=== PATIENT | male | born 1970 | race Caucasian/White ===

== ENCOUNTER 2016-11-22 07:44 | Emergency (ER) ==
[2016-11-22 07:44] VITALS: BMI 22.0
[2016-11-22 08:00] VITALS: BP 148/91; TEMP 96.6
[2016-11-22] MEDS ORDERED: TORADOL IM STA (08:04)
[2016-11-22] MEDS ORDERED: ZOFRAN 4 MG/2 ML IM STA (08:04)
[2016-11-22] MEDS ORDERED: MORPHINE 4 MG/ML SYRINGE IM STA (08:04)
[2016-11-22] MEDS ORDERED: VALIUM SYRINGE IM STA (08:04)
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
== END 2016-11-22 10:09 | disposition home or self-care (01) ==
LOC: ED 07:44
DX: M54.5 Low back pain (principal); M54.2 Cervicalgia; V59.9XXA Occupant (driver) (passenger) of pick-up truck or van injured in unspecified traffic accident, initial encounter; F17.210 Nicotine dependence, cigarettes, uncomplicated
CPT/HCPCS: 96372; 99283

== ENCOUNTER 2016-11-30 09:45 | Outpatient (CLI) ==
--- NOTE | 2016-11-30 14:53 | MRI ---
EXAM: Lumbar spine MRI without contrast. HISTORY: Low back pain. COMPARISON: Lumbar spine CT scan 11/22/2016 and lumbar spine MRI 04/13/2016. TECHNIQUE: Multiplanar, multisequence MR images were acquired of the lumbar spine without contrast. FINDINGS: Small ribs are present bilaterally at T12. There are five lumbar-type vertebra. The lum bar vertebra are normal in height and alignment. Intrinsic bone marrow signal is mildly heterogeneo us. There is minor lumbar ventral spondylosis. At L4-5, there is osteophytosis with disc space erin rowing, disc desiccation and vacuum phenomenon. The intervertebral disc at L5-S1 is developmentally small. Conus medullaris ends at L1 and has normal signal intensity. The visualized liver, gallbladder, spleen and kidneys are unremarkable. There is a normal variant r etroaortic left renal vein. There are no paravertebral masses. T12-L1: The intervertebral disc is normal. L1-2: The intervertebral disc is normal. There is no central canal stenosis or foraminal stenosis. L2-3: There is a minimal disc bulge that may be physiologic with small right far lateral endplate o steophytes. There is no central canal stenosis or foraminal stenosis. L3-4: There is a minimal disc bulge that is considered physiologic and minor bilateral facet arthro roselyn and mild ligamentum flavum hypertrophy. There is minor bilateral foraminal stenosis. L4-5: There is a mild disc bulge with a stable moderate central and left paracentral disc protrusio n that effaces the ventral thecal sac and encroaches on the left L5 nerve roots. Mild bilateral face t arthropathy and ligamentum flavum hypertrophy is present. There is mild to moderate bilateral for aminal stenosis. L5, S1: There is a minor posterior disc bulge and minor bilateral facet arthropathy. There is no c entral canal stenosis or foraminal stenosis. IMPRESSION: 1. No change moderate central/left paracentral disc protrusion L4-5. 2. Mild to moderate bilateral foraminal stenosis L4-5.
== END 2016-11-30 09:46 | disposition home or self-care (01) ==
LOC: RAD 09:45
PROVIDERS: ATTEND Family Medicine
DX: M54.5 Low back pain (principal)

== ENCOUNTER 2016-12-01 11:23 | Outpatient (CLI) ==
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
== END 2016-12-01 11:24 | disposition home or self-care (01) ==
LOC: RAD 11:23
PROVIDERS: ATTEND Family Medicine
DX: M54.2 Cervicalgia (principal)

== ENCOUNTER 2017-04-28 08:38 | Emergency (ER) ==
[2017-04-28 08:44] VITALS: BP 151/97; TEMP 98.3; BMI 22.6
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
[2017-04-28] MEDS ORDERED: NORFLEX IM STA (09:00)
[2017-04-28] MEDS ORDERED: TORADOL IM STA (09:00)
== END 2017-04-28 10:05 | disposition home or self-care (01) ==
LOC: ED 08:38
DX: M54.5 Low back pain (principal); F17.210 Nicotine dependence, cigarettes, uncomplicated
CPT/HCPCS: 96372; 99282

== ENCOUNTER 2017-10-19 08:37 | Emergency (ER) ==
[2017-10-19 08:44] VITALS: BP 120/90; TEMP 96.9; BMI 22.0
[2017-10-19] MEDS ORDERED: SODIUM CHLORIDE 1,000 ML IV STA (10:31)
--- NOTE | 2017-10-19 10:40 | ED.PDOC ---
General ED Provider: Dr. TOMASZ ZARAGOZA Chief Complaint: Abdominal Pain Stated Complaint: Severe pain in Rt upper and lower abdomen. Onset 4 days ago. + Diarrhea but Denies Nausea or vomiting. Persistent pain moving from Rt UQ/ Flank into RLQ. No previous GI or illness Time Seen by Physician: 10:20 Mode of Arrival: Walk-In Information Source: Patient Exam Limitations: No limitations Primary Care Provider: TOMASZ TRACEY Referred to ED by: Other Nursing and Triage Documentation Reviewed and Agree: Yes Reviewed sepsis parameters & appropriate labs ordered?: Yes System Inflammatory Response Syndrome: Not Applicable Sepsis Protocol: For patient's 13 years and over: Temp is 96.8 and below OR 101 and greater Pulse >90 BPM Resp >20/minute Acutely Altered Mental Status Are patient's symptoms suggestive of a new infection, such as: -Pneumonia -Skin, Soft Tissue -Endocarditis -UTI -Bone, Joint Infection -Implantable Device -Acute Abdominal Infection -Wound Infection -Meningitis -Blood Stream Catheter Infection -Unknown GI Complaint Exam - Abdominal Pain Complaint/Exam Symptoms Are: Still present Timing: Constant Initial Severity: Severe Current Severity: Severe Location of Pain: RUQ, RLQ Radiates To: Reports: Flank Character: Reports: Sharp, Cramping, Colicky Aggravating: Reports: Deep breaths, Position Alleviating: Reports: Rest Associated Signs and Symptoms: Reports: Back pain, Diarrhea. Denies: Diaphoresis, Fever, Cough, Chest pain, Dizziness, Constipation, Blood in stool, Dysuria, Urinary frequency, Decreased urine output, Decreased appetite, Discharge, Nausea, Vomiting, Decreased activity Related History: Denies: Similar episode Review of Systems - Review Of Systems Constitutional: Reports: No symptoms Eyes: Reports: No symptoms Ears, Nose, Mouth, Throat: Reports: No symptoms Respiratory: Reports: No symptoms Cardiac: Reports: No symptoms GI: Reports: Abdominal pain, Diarrhea, Other (Ate breakfast this morning without difficulty). Denies: Abdomen distended, Constipated, Difficulty swallowing, Nausea, Poor appetite : Reports: No symptoms Musculoskeletal: Reports: No symptoms Skin: Reports: No symptoms Neurological: Reports: No symptoms Endocrine: Reports: No symptoms Hematologic/Lymphatic: Reports: No symptoms All Other Systems: Reviewed and Negative Past Medical History - Past Medical History Previously Healthy: Yes Endocrine: Reports: None Cardiovascular: Reports: Hypertension Respiratory: Reports: None Hematological: Reports: None Gastrointestinal: Reports: None Genitourinary: Reports: None Neuro/Psych: Reports: None Musculoskeletal: Reports: Back Pain, Joint Pain Cancer: Reports: None Other Pertinent Past Medical History: chronic back pain - Surgical History General Surgical History: Reports: Orthopedic (NECK SURGERY 2003, JAW SURGERY 1983), Hernia Repair, Unknown - Family History Family History: Reports: Unknown - Social History Smoking Status: Current some day smoker Hx Substance Use: No Alcohol Screening: Occasionally Physical Exam - Physical Exam Appearance: Ill-appearing Ill-appearing: Moderate Pain Distress: Severe Eyes: NATALEE, EOMI, Conjunctiva clear ENT: Ears normal Neck: Supple Respiratory: Airway patent, Breath sounds clear, Breath sounds equal Cardiovascular: RRR, Pulses normal, No rub, No murmur GI/: Soft, Tender, Bowel sounds hypoactive Musculoskeletal: Normal strength Skin: Warm, Normal color Neurological: Sensation intact Re-Evaluation - Re-Evaluation Time of Re-Evaluation: 14:30 Status: Worse Vital Signs Stable: Yes Lungs: Clear Skin: Warm and Dry Neuro: Alert and Oriented X3 CV: RRR Additional Comments: Abdominal pain persists in Rt Lower quadrant /rebound and guading Physician Notification - Case Discussed Physician Notified: Dr Tracey/agreed for transfer to [facility] FOR SURGICAL CONSULT & [place] Time of Notification: 15:00 Physician Notified: DR SKYLAR CALLEJAS AT [facility] CONSULTED/DISCUSSED/ AGREED TO ACCEPT Time of Notification: 15:20 Critical Care Note - Critical Care Note Total Time (mins): 0 Course - Course Hematology/Chemistry: 10/19/17 10:45 10/19/17 10:45 Orders, Labs, Meds: Lab Review 10/19/17 10/19/17 10/19/17 08:52 10:45 10:45 WBC 6.85 RBC 4.97 Hgb 15.9 Hct 45.9 MCV 92.4 MCH 32.0 H MCHC 34.6 RDW Coeff of Filiberto 12.4 Plt Count 266 Immature Gran % (Auto) 0.1 Neut % (Auto) 66.0 Lymph % (Auto) 24.1 [place] % (Auto) 6.9 Eos % (Auto) 2.2 Baso % (Auto) 0.7 Immature Gran # (Auto) 0.0 Neut # 4.5 Lymph # 1.7 [place] # 0.5 Eos # 0.2 Baso # 0.1 Sodium 140 Potassium 4.2 Chloride 106 Carbon Dioxide 27 Anion Gap 11.2 BUN 12 Creatinine 1.03 Estimated GFR (MDRD) 77.00 BUN/Creatinine Ratio 11.65 Glucose 93 Calcium 9.6 Total Bilirubin 0.5 AST 16 ALT 20 Alkaline Phosphatase 70 Total Protein 6.9 Albumin 3.9 Globulin 3.0 Albumin/Globulin Ratio 1.30 Lipase Urine Color Yellow Urine Clarity Clear Urine pH 5.5 Ur Specific [place] >=1.030 Urine Protein Negative Urine Glucose (UA) Negative Urine Ketones 1+ Urine Blood Negative Urine Nitrite Negative Urine Bilirubin 1+ Urine Urobilinogen 0.2 Ur Leukocyte Esterase Negative 10/19/17 10:45 WBC RBC Hgb Hct MCV MCH MCHC RDW Coeff of Filiberto Plt Count Immature Gran % (Auto) Neut % (Auto) Lymph % (Auto) [place] % (Auto) Eos % (Auto) Baso % (Auto) Immature Gran # (Auto) Neut # Lymph # [place] # Eos # Baso # Sodium Potassium Chloride Carbon Dioxide Anion Gap BUN Creatinine Estimated GFR (MDRD) BUN/Creatinine Ratio Glucose Calcium Total Bilirubin AST ALT Alkaline Phosphatase Total Protein Albumin Globulin Albumin/Globulin Ratio Lipase 46 Urine Color Urine Clarity Urine pH Ur Specific [place] Urine Protein Urine Glucose (UA) Urine Ketones Urine Blood Urine Nitrite Urine Bilirubin Urine Urobilinogen Ur Leukocyte Esterase Orders Category Date Time Status NPO REMINDER: IMAGING ONCE CARE 10/19/17 10:34 Completed CBC W/ AUTO DIFF Stat LAB 10/19/17 10:45 Completed CMP [COMPREHENSIVE METABOLIC PANEL] Stat LAB 10/19/17 10:45 Completed LIPASE Stat LAB 10/19/17 10:45 Completed UA [URINALYSIS C & S IF INDICATED] Stat LAB 10/19/17 08:52 Completed Hydromorphone HCl/Pf [Dilaudid 2 mg/ml Syringe] MEDS 10/19/17 12:24 Discontinued 2 mg IVP ONCE STA Ondansetron HCl/Pf [Zofran 4 mg/2 ml] MEDS 10/19/17 12:24 Discontinued 4 mg IVP ONCE STA Sodium Chloride 0.9% [Sodium Chloride] 1,000 ml MEDS 10/19/17 10:31 Active IV 125 mls/hr CT ABDOMEN/PELVIS W/WO CONTRAS Stat RADS 10/19/17 10:31 Completed Medications Generic Name Dose Route Start Last Admin Trade Name Freq PRN Reason Stop Dose Admin Sodium Chloride 1,000 mls @ 125 mls/hr 10/19/17 10:31 10/19/17 10:45 Sodium Chloride IV 10/19/17 18:30 125 mls/hr .Q8H STA Administration Discontinued Medications Generic Name Dose Route Start Last Admin Trade Name Zaid PRN Reason Stop Dose Admin Hydromorphone HCl 2 mg 10/19/17 12:24 10/19/17 12:37 Dilaudid 2 Mg/Ml Syringe IVP 10/19/17 12:25 2 mg ONCE STA Administration Ondansetron HCl 4 mg 10/19/17 12:24 10/19/17 12:36 Zofran 4 Mg/2 Ml IVP 10/19/17 12:25 4 mg ONCE STA Administration Vital Signs: Temp Pulse Resp BP Pulse Ox 10/19/17 08:40 96.9 F L 90 20 120/90 95 Departure - Departure Time of Disposition: 15:34 Disposition: TSF SHORT-TRM HOSP Discharge Problem: Acute colitis Condition: Stable Pt referred to PMD for follow-up: Yes (POST HOSPITALIZATION ) Allergies/Adverse Reactions: Allergies fexofenadine Adverse Reaction (Verified 10/19/17 08:44) Penicillins Adverse Reaction (Verified 10/19/17 08:44) venom-honey bee [bee venom (honey bee)] Adverse Reaction (Verified 10/19/17 08: 44) Home Medications: Ambulatory Orders Hydrocodone Bit/Acetaminophen [[place] 7.5-325] 1 each PO Q6HR 07/27/16
[2017-10-19] MEDS ORDERED: ZOFRAN 4 MG/2 ML IVP STA (12:24)
[2017-10-19] MEDS ORDERED: DILAUDID 2 MG/ML SYRINGE IVP STA (12:24)
--- NOTE | 2017-10-19 12:46 | CT ---
EXAM: CT abdomen pelvis with and without contrast HISTORY: Acute right upper quadrant, right lower quadrant flank pain COMPARISON: None TECHNIQUE: CT abdomen pelvis performed with and without intravenous contrast. Coronal and sagittal reformatted images obtained. FINDINGS: Lung bases clear. No free air. No acute abnormalities of the bones. Granulomatous calci fication right lung base. Heart normal in size. Liver appears normal. Sub centimeter hypodensity l eft liver, too small to characterize. Gallbladder unremarkable. Pancreas unremarkable. Spleen unre markable. Adrenals unremarkable. Kidneys unremarkable without hydronephrosis or nephrolithiasis. N o calculi visualized in the normal course of the ureters. Bladder unremarkable. Prostate normal in size. Small fat-containing right inguinal hernia. Aorta normal in caliber. Minimal atherosclerosis . Minimal fat-containing umbilical hernia. No lymphadenopathy or ascites. Postsurgical changes in the left groin and likely from prior hernia repair. Stomach appears normal. No dilated loops small bowel. Distal appendix difficult to trace. Questionable top normal diameter of the distal appendix up to 6 mm versus nonspecific perihepatic nodularity and/or trace fluid. No inflammatory changes are identified. There is increased submucosal fat deposition in portions of the colon. Wall thickening of the rectosigmoid region. IMPRESSION: 1. Distal appendix difficult to trace. Questionable top normal diameter of the distal appendix up t o 6 mm versus nonspecific perihepatic nodularity and/or trace fluid. No inflammatory changes identifi ed. A positive examination for appendicitis is not favored; however, clinical correlation is recommen ded. Consider a short-term follow-up CT if patient's symptoms continue. 2. Wall thickening rectosigmoid region suggesting colitis. 3. Increased submucosal fat deposition in portions of the colon, a finding be seen in sequela of rem ote infection or inflammation, such as inflammatory bowel disease. 4. Small fat-containing right inguinal hernia. 5. Postsurgical changes left pelvis likely from prior hernia repair.
== END 2017-10-19 16:16 | disposition short-term general hospital (02) ==
LOC: ED 08:37
DX: K52.9 Noninfective gastroenteritis and colitis, unspecified (principal); F17.210 Nicotine dependence, cigarettes, uncomplicated
CPT/HCPCS: 36415; 80053; 81001; 83690; 85025; 96361; 96374; 96375; 99285

== ENCOUNTER 2017-10-19 16:06 | Outpatient (CLI) ==
[2017-10-19 08:44] VITALS: BMI 22.0
== END 2017-10-19 16:07 | disposition short-term general hospital (02) ==
LOC: AMBL 16:06
PROVIDERS: ATTEND Emergency Medicine
DX: R10.9 Unspecified abdominal pain (principal)

== ENCOUNTER 2018-01-23 13:59 | Emergency (ER) ==
[2018-01-23 14:05] VITALS: BP 168/92; TEMP 98.5; BMI 22.8
[2018-01-23] MEDS ORDERED: ROCEPHIN 1 GM in SODIUM CHLORIDE 50 ML IV STA (14:29)
[2018-01-23] MEDS ORDERED: SOLU-MEDROL 125 MG IVP STA ×2 (14:30→14:32)
[2018-01-23] MEDS ORDERED: ASPIRIN CHEWABLE PO STA (14:30)
--- NOTE | 2018-01-23 15:47 | ED.PDOC ---
General ED Provider: Dr. RADHA MATHIAS Chief Complaint: Hypertension Stated Complaint: hypertension Time Seen by Physician: 14:00 Mode of Arrival: Walk-In Information Source: Patient Exam Limitations: No limitations Primary Care Provider: TOMASZ CURIEL Nursing and Triage Documentation Reviewed and Agree: Yes (chest pain palpitation onset 2 am today with chest pain) Reviewed sepsis parameters & appropriate labs ordered?: Yes System Inflammatory Response Syndrome: Not Applicable Sepsis Protocol: For patient's 13 years and over: Temp is 96.8 and below OR 101 and greater Pulse >90 BPM Resp >20/minute Acutely Altered Mental Status Are patient's symptoms suggestive of a new infection, such as: -Pneumonia -Skin, Soft Tissue -Endocarditis -UTI -Bone, Joint Infection -Implantable Device -Acute Abdominal Infection -Wound Infection -Meningitis -Blood Stream Catheter Infection -Unknown System Inflammatory Response Syndrome: Not Applicable Cardiovascular Complaint Exam - Chest Pain Complaint/Exam Onset: Gradual Duration: 12 hrs Symptoms Are: Resolved Timing: Intermittent Length of Chest Pain Episodes: 30 min Initial Severity: Moderate Current Severity: None Location: Reports: Midsternal Pain Radiates: Reports: Left shoulder, Left arm. Denies: Back, Right shoulder, Right arm, Jaw, Neck Character: Reports: Aching Aggravating: Reports: None Alleviating: Reports: None Associated Signs and Symptoms: Reports: Cough. Denies: Diaphoresis, Nausea, Vomiting, Fever, Palpitations, Hemoptysis, Back pain, Abdominal pain, Dizziness , Short of air, Calf pain, Calf swelling Related History: Reports: Similar episode Related Surgical History: Reports: None History of Healthcare-Acquired Pneumonia: Reports: No AMI/ACS Risk Factors: Reports: Obesity, Hypertension, Smoking TAD Risk Factors: Reports: Hypertension, Smoking Pulmonary Embolism Risk Factors: Reports: None Prior Care for this Complaint: No Recent Stress Test: No Recent Echo/LV Function: No JVD Present: No Subcutaneous Emphysema Present: No Diminshed Breath Sounds: No Reproducible Chest Wall Pain: No Bilateral Pulses Present: No Unequal Pulses Noted: No If Risk Factors for AMI/ACS Consider: EKG, Cardiac Enzymes Care and Dx Studies Discussed With: Family Differential Diagnoses: Acute SC, ACS, Unstable Angina, Lower Resp. Infection Quality Indicators For Acute SC or Cardiac Chest Pain: EKG in 10min. Quality Indicator For Non-Traumatic Chest Pain/Syncope: EKG Performed Patient Advised to Stop Smoking: Yes Review of Systems - Review Of Systems Constitutional: Reports: No symptoms Eyes: Reports: No symptoms Ears, Nose, Mouth, Throat: Reports: No symptoms Respiratory: Reports: No symptoms Cardiac: Reports: Chest pain GI: Reports: No symptoms : Reports: No symptoms Musculoskeletal: Reports: No symptoms Skin: Reports: No symptoms Neurological: Reports: No symptoms Endocrine: Reports: No symptoms Hematologic/Lymphatic: Reports: No symptoms All Other Systems: Reviewed and Negative Past Medical History - Past Medical History Previously Healthy: Yes Endocrine: Reports: None Cardiovascular: Reports: Hypertension Respiratory: Reports: None Hematological: Reports: None Gastrointestinal: Reports: None Genitourinary: Reports: None Neuro/Psych: Reports: None Musculoskeletal: Reports: Back Pain, Joint Pain Cancer: Reports: None Other Pertinent Past Medical History: chronic back pain - Surgical History General Surgical History: Reports: Orthopedic (NECK SURGERY 2003, JAW SURGERY 1983), Hernia Repair, Unknown - Family History Family History: Reports: Unknown - Social History Smoking Status: Current some day smoker Hx Substance Use: No Alcohol Screening: Occasionally Physical Exam - Physical Exam Appearance: Well-appearing, No pain distress, Well-nourished Eyes: NATALEE, EOMI, Conjunctiva clear ENT: Ears normal, Nose normal, Oropharynx normal Respiratory: Airway patent, Breath sounds clear, Breath sounds equal, Respirations nonlabored Cardiovascular: RRR, Pulses normal, No rub, No murmur GI/: Soft, Nontender, No masses, Bowel sounds normal, No Organomegaly Musculoskeletal: Normal strength, ROM intact, No edema, No calf tenderness Skin: Warm, Dry, Normal color Neurological: Sensation intact, Motor intact, Reflexes intact, Cranial nerves intact, Alert, Oriented Psychiatric: Affect appropriate, Mood appropriate 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 Rhythm: Sinus Ectopy: None - EKG Interpretation Rate: Normal Rhythm: Sinus Ectopy: None [place]: NL ST Segment: Normal Physician Notification - Case Discussed Physician Notified: gio TAPIA Time of Notification: 15:58 Physician Notified: PMD Time of Notification: 15:58 (TRANSFER ) Critical Care Note - Critical Care Note Total Time (mins): 0 Course - Course Hematology/Chemistry: 01/23/18 14:30 01/23/18 14:30 Orders, Labs, Meds: Lab Review 01/23/18 01/23/18 01/23/18 14:30 14:30 14:30 WBC 7.73 RBC 5.05 Hgb 16.0 Hct 46.1 MCV 91.3 MCH 31.7 H MCHC 34.7 RDW Coeff of Filiberto 12.8 Plt Count 280 Immature Gran % (Auto) 0.3 Neut % (Auto) 56.1 Lymph % (Auto) 33.6 [place] % (Auto) 6.7 Eos % (Auto) 2.7 Baso % (Auto) 0.6 Immature Gran # (Auto) 0.0 Neut # (Auto) 4.3 Lymph # (Auto) 2.6 [place] # (Auto) 0.5 Eos # (Auto) 0.2 Baso # (Auto) 0.1 PT 9.8 INR 0.98 APTT 27.7 Sodium 140 Potassium 4.3 Chloride 108 H Carbon Dioxide 22 Anion Gap 14.3 BUN 18 Creatinine 1.01 Estimated GFR (MDRD) 79.00 BUN/Creatinine Ratio 17.82 Glucose 104 H Calcium 9.5 Total Bilirubin 0.3 AST 18 ALT 27 Alkaline Phosphatase 82 Total Creatine Kinase 62 Troponin I < 0.0100 Total Protein 6.8 Albumin 3.9 Globulin 2.9 Albumin/Globulin Ratio 1.34 Orders Category Date Time Status EKG-(ED ONLY) Stat CARDIO 01/23/18 14:29 Completed ED IV/MEDIPORT/POWERPORT .ONCE EMERGENCY 01/23/18 14:29 Active CBC W/ AUTO DIFF Stat LAB 01/23/18 14:30 Completed COMPREHENSIVE METABOLIC PANEL Stat LAB 01/23/18 14:30 Completed CREATINE KINASE Stat LAB 01/23/18 14:30 Completed PARTIAL THROMBOPLASTIN TIME Stat LAB 01/23/18 14:30 Completed PT WITH INR Stat LAB 01/23/18 14:30 Completed TROPONIN I Stat LAB 01/23/18 14:30 Completed 0.9 % Sodium Chloride [Saline Flush] MEDS 01/23/18 14:29 Active 1 syr IVF PRN PRN Aspirin [Aspirin Chewable] MEDS 01/23/18 14:30 Discontinued 324 mg PO ONCE STA CHEST, 2 VIEWS PA & LAT Stat RADS 01/23/18 15:29 Ordered Medications Generic Name Dose Route Start Last Admin Trade Name Freq PRN Reason Stop Dose Admin Sodium Chloride 1 syr 01/23/18 14:29 Saline Flush IVF PRN PRN To flush IV Discontinued Medications Generic Name Dose Route Start Last Admin Trade Name Freq PRN Reason Stop Dose Admin Aspirin 324 mg 01/23/18 14:30 01/23/18 14:40 Aspirin Chewable PO 01/23/18 14:31 324 mg ONCE STA Administration Vital Signs: Temp Pulse Resp BP Pulse Ox 01/23/18 13:59 98.5 F 93 H 18 168/92 H 95 BESSIE Risk Score BESSIE Risk Score: Risk Score Odds of by 30D 0 0.1 (0.1-0.2) 1 0.3 (0.2-0.3) 2 0.4 (0.3-0.5) 3 0.7 (0.6-0.9) 4 1.2 (1.0-1.5) 5 2.2 (1.9-2.6) 6 3.0 (2.5-3.6) 7 4.8 (3.8-6.1) Departure - Departure Time of Disposition: 15:54 Disposition: TSF SHORT-TRM HOSP Discharge Problem: Chest pain Qualifiers: Chest pain type: unspecified Qualified Code(s): R07.9 - Chest pain, unspecified Instructions: Angina (ED) Condition: Good Pt referred to PMD for follow-up: Yes IPMP verified?: No Additional Instructions: Please call your Family Physician as soon as possible to schedule a follow-up appointment. Allergies/Adverse Reactions: Allergies fexofenadine Adverse Reaction (Verified 01/23/18 14:05) Penicillins Adverse Reaction (Verified 01/23/18 14:05) venom-honey bee [bee venom (honey bee)] Adverse Reaction (Verified 01/23/18 14: 05) Home Medications: Ambulatory Orders Hydrocodone Bit/Acetaminophen [[place] 7.5-325] 1 each PO Q6HR 07/27/16 Disposition Discussed With: Patient
--- NOTE | 2018-01-23 15:52 | DI ---
EXAM: Chest two view, frontal and lateral views. HISTORY: Chest pain. COMPARISON: 02/11/2011. FINDINGS: The heart size is normal. There is no pulmonary vascular congestion. The lungs are clear . No pleural effusion or pneumothorax is seen. No acute osseous abnormality identified. ACDF lopez es noted. Clips seen in the right upper quadrant the abdomen. Since the prior study, there has been no significant interval change. IMPRESSION: No acute cardiopulmonary process.
== END 2018-01-23 16:22 | disposition short-term general hospital (02) ==
LOC: ED 13:59
DX: R07.9 Chest pain, unspecified (principal); I10 Essential (primary) hypertension; F17.210 Nicotine dependence, cigarettes, uncomplicated; E66.9 Obesity, unspecified
CPT/HCPCS: 36415; 80053; 82550; 84484; 85025; 85610; 85730; 93005; 93010; 99285

== ENCOUNTER 2018-01-23 16:26 | Outpatient (CLI) ==
[2018-01-23 14:05] VITALS: BMI 22.8
== END 2018-01-23 16:27 | disposition short-term general hospital (02) ==
LOC: AMBL 16:26
PROVIDERS: ATTEND Internal Medicine
DX: R07.9 Chest pain, unspecified (principal); I10 Essential (primary) hypertension

== ENCOUNTER 2018-02-19 11:01 | Emergency (ER) ==
[2018-02-19 11:04] VITALS: BP 153/101; TEMP 98.1; BMI 23.4
--- NOTE | 2018-02-19 11:13 | ED.PDOC ---
General ED Provider: Dr. TOMASZ LEIJA MD Chief Complaint: Rash Stated Complaint: I itch all over and have this rash getting bigger Mode of Arrival: Walk-In Information Source: Patient Exam Limitations: No limitations Primary Care Provider: TOMASZ CURIEL Referred to ED by: Other Nursing and Triage Documentation Reviewed and Agree: Yes Reviewed sepsis parameters & appropriate labs ordered?: Yes Sepsis Protocol: For patient's 13 years and over: Temp is 96.8 and below OR 101 and greater Pulse >90 BPM Resp >20/minute Acutely Altered Mental Status Are patient's symptoms suggestive of a new infection, such as: -Pneumonia -Skin, Soft Tissue -Endocarditis -UTI -Bone, Joint Infection -Implantable Device -Acute Abdominal Infection -Wound Infection -Meningitis -Blood Stream Catheter Infection -Unknown Skin Complaint Exam - Skin Rash/Itching Complaint/Exam Onset/Duration: 1-2 days Symptoms Are: Worse Initial Severity: Mild Current Severity: Moderate Location: arms, back, chest and penis Potential Exposures: Reports: Unknown Aggravating: Reports: None Alleviating: Reports: None Skin Findings: Present: Urticaria, Maculae Differential Diagnoses: Allergic Reaction, Contact Dermatitis, Drug Rash Review of Systems - Review Of Systems Constitutional: Reports: No symptoms Eyes: Reports: No symptoms Ears, Nose, Mouth, Throat: Reports: No symptoms Respiratory: Reports: No symptoms Cardiac: Reports: No symptoms GI: Reports: No symptoms : Reports: No symptoms Musculoskeletal: Reports: No symptoms Skin: Reports: Lesions, Rash Neurological: Reports: No symptoms Endocrine: Reports: No symptoms Hematologic/Lymphatic: Reports: No symptoms All Other Systems: Reviewed and Negative Past Medical History - Past Medical History Previously Healthy: Yes Endocrine: Reports: None Cardiovascular: Reports: Hypertension Respiratory: Reports: None Hematological: Reports: None Gastrointestinal: Reports: None Genitourinary: Reports: None Neuro/Psych: Reports: None Musculoskeletal: Reports: Back Pain, Joint Pain Cancer: Reports: None Other Pertinent Past Medical History: chronic back pain - Surgical History General Surgical History: Reports: Orthopedic (NECK SURGERY 2003, JAW SURGERY 1983), Hernia Repair, Unknown - Family History Family History: Reports: Unknown - Social History Smoking Status: Current some day smoker Hx Substance Use: No Alcohol Screening: Occasionally Course - Course Vital Signs: Temp Pulse Resp BP Pulse Ox 02/19/18 11:02 98.1 F 82 20 153/101 H 98 Departure - Departure Allergies/Adverse Reactions: Allergies fexofenadine Adverse Reaction (Verified 02/19/18 11:04) Penicillins Adverse Reaction (Verified 02/19/18 11:04) venom-honey bee [bee venom (honey bee)] Adverse Reaction (Verified 02/19/18 11: 04) Home Medications: Ambulatory Orders Hydrocodone Bit/Acetaminophen [[place] 7.5-325] 1 each PO Q6HR 07/27/16
[2018-02-19] MEDS: SOLU-MEDROL 125 MG IM STA (11:20)
== END 2018-02-19 11:40 | disposition home or self-care (01) ==
LOC: ED 11:01
DX: R21 Rash and other nonspecific skin eruption (principal); L29.9 Pruritus, unspecified; F17.210 Nicotine dependence, cigarettes, uncomplicated
CPT/HCPCS: 96372; 99282; 99283

== ENCOUNTER 2018-12-05 10:20 | Outpatient (CLI) | END 2018-12-05 10:21 | disposition home or self-care (01) | LOC: RHC-LAB 10:20 | PROVIDERS: ATTEND Nurse Practitioner Family | DX: Z00.00 Encounter for general adult medical examination without abnormal findings (principal) | CPT/HCPCS: 36415; 80053; 80061; 84443; 85025 ==